=== PATIENT | female | born 1955 | race Caucasian/White ===

== ENCOUNTER 2019-02-18 15:50 | Emergency (ER) | payer OTHER ==
[~2019-02-18] VITALS: Ht 152.4 cm; Wt 61.8 kg
[2019-02-18] MEDS ORDERED: ATEN50TA PO (16:27)
[2019-02-18] MEDS ORDERED: ATOR20TA86 PO (16:27)
[2019-02-18] MEDS ORDERED: ALPR0.255 PO (16:27)
[2019-02-18] MEDS ORDERED: CLON1TAB13 PO (16:27)
[2019-02-18] MEDS ORDERED: LORazepam 2 MG TABLET PO ONE (19:30)
[2019-02-18 23:30] VITALS: BP 128/65
== END 2019-02-19 00:16 | disposition short-term general hospital (02) ==
LOC: EMS 15:53
DX: F31.9 Bipolar disorder, unspecified (principal); I10 Essential (primary) hypertension; F17.200 Nicotine dependence, unspecified, uncomplicated